=== PATIENT | male | born 1990 | race Caucasian/White ===

== ENCOUNTER 2017-02-17 19:17 | Emergency (ER) | payer MEDICAID ==
[2017-02-17 23:51] VITALS: BP 135/93
== END 2017-02-17 23:53 | disposition home or self-care (01) ==
LOC: ED 19:17
DX: L72.3 Sebaceous cyst (principal); R03.0 Elevated blood-pressure reading, without diagnosis of hypertension
CPT/HCPCS: J2001

== ENCOUNTER 2017-02-19 16:31 | Emergency (ER) | payer MEDICAID | END 2017-02-19 17:16 | disposition left against medical advice (07) | LOC: ED 16:31 | DX: Z53.21 Procedure and treatment not carried out due to patient leaving prior to being seen by health care provider (principal) ==

== ENCOUNTER 2017-02-19 18:57 | Emergency (ER) | payer MEDICAID ==
[~2017-02-19] VITALS: Ht 170.2 cm; Wt 99.8 kg
[2017-02-19 19:00] VITALS: BP 143/82
== END 2017-02-19 23:12 | disposition home or self-care (01) ==
LOC: ED 18:57
DX: Z48.01 Encounter for change or removal of surgical wound dressing (principal); R03.0 Elevated blood-pressure reading, without diagnosis of hypertension

== ENCOUNTER 2017-02-21 18:35 | Emergency (ER) | payer MEDICAID ==
[2017-02-21 19:46] VITALS: BP 147/90
== END 2017-02-21 19:46 | disposition home or self-care (01) ==
LOC: ED 18:35
DX: Z48.01 Encounter for change or removal of surgical wound dressing (principal); R03.0 Elevated blood-pressure reading, without diagnosis of hypertension